=== PATIENT | female | born 1965 | race Caucasian/White ===

== ENCOUNTER 2021-12-19 09:19 | Inpatient (IN) | payer BC, OTHER ==
[~2021-12-19] VITALS: Ht 162.6 cm; Wt 70.8 kg
[2021-12-19 09:31] VITALS: BP_SYST 127
[2021-12-19] MEDS ORDERED: NACL 0.9% 1,000 ML IV ONE (10:15)
[2021-12-19 10:26] LABS: BASOPHILS # (AUTO) 0.1 K/uL (0.0-0.2); BASOPHILS % (AUTO) 0.9 % (0.0-2.0); EOSINOPHILS # (AUTO) 0.1 K/uL (0.0-0.4); EOSINOPHILS % (AUTO) 1.1 % (0.0-4.0); HEMATOCRIT 36.5 % (36-48); HEMOGLOBIN 12.2 g/dL (12.0-16.0); LYMPHOCYTES # (AUTO) 1.7 K/uL (1.0-5.5); LYMPHOCYTES % (AUTO) 24.9 % (20.5-51.5); MEAN CORPUSCULAR HEMOGLOBIN 28 pg (27-31); MEAN CORPUSCULAR HGB CONC 33 % (32-36); MEAN CORPUSCULAR VOLUME 84 fL (79.0-98.0); MONOCYTES # (AUTO) 0.5 K/uL (0.0-1.0); MONOCYTES % (AUTO) 7.7 % (1.7-9.3); NEUTROPHILS # (AUTO) 4.4 K/uL (1.8-7.7); NEUTROPHILS % (AUTO) 65.4 % (40.0-70.0); PLATELET COUNT (AUTO) 191 K/uL (130-430); RED BLOOD CELL COUNT(AUTO) 4.35 MIL/uL (4.2-6.2); RED CELL DISTRIBUTION WIDTH 13.3 % (9.0-15.0); WHITE BLOOD COUNT (AUTO) 6.8 K/uL (4.8-10.8)
[2021-12-19 10:39] LABS: ANION GAP 5 (5-15); CALCIUM 8.7 mg/dL (8.4-11.0); CHLORIDE 103 mmol/L (98-107); GLUCOSE 172 mg/dL (70-99); POTASSIUM 3.3 mmol/L (3.5-5.1); UREA NITROGEN, BLOOD 22 mg/dL (8-21)
[2021-12-19] MEDS ORDERED: ACETAMINOPHEN 500 MG TABLET PO ONE (10:45)
[2021-12-19] MEDS ORDERED: ONDANSETRON HCL 4 MG/2 ML VIAL IVP ONE (10:45)
[2021-12-19 10:48] LABS: ALANINE AMINOTRANSFERASE 19 U/L (12-78); ALBUMIN 3.3 g/dL (3.4-4.8); ASPARTATE AMINOTRANSFERASE 14 U/L (10-37); LIPASE 53 U/L (73-393); TOTAL BILIRUBIN 0.3 mg/dL (0.0-1.0)
--- NOTE | 2021-12-19 11:00 | NUR ---
Pt bib self from home. CC N/V has recurrent episodes of vomiting since Sunday 72 hours. Pt states was out of town on Sunday and went to an Urgent care on Sunday , pt was administered Azithromycin however unable to hold down medicine. 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 Denies SOB, Cap refill <3 sec. Skin intact.
[2021-12-19 11:09] LABS: GFR AFRICAN AMERICAN 133 mL/min (>90)
--- NOTE | 2021-12-19 11:24 | NUR ---
ER at bedside examining patient.
--- NOTE | 2021-12-19 12:00 | NUR ---
Pt c/o headache, nausea relieved at this time. Notified MD Rowley of Headache.
[2021-12-19] MEDS ORDERED: KETOROLAC TROMETHAMINE 30 MG VIAL IVP ONE (12:30)
[2021-12-19] MEDS ORDERED: POTASSIUM CHLORIDE 20 MEQ TAB.PRT.SR PO ONE (12:30)
[2021-12-19] MEDS ORDERED: POTASSIUM CHLORIDE 20 MEQ TAB.PRT.SR ONE (12:55)
[2021-12-19] MEDS ORDERED: LORazepam 2 MG/ML VIAL IVP PRN (14:15)
[2021-12-19] MEDS ORDERED: POTASSIUM CHLORIDE 40 MEQ, LIDOCAINE JECT 2% PF 100 MG 50 MG in NS 250 ML IV PRN (14:15)
[2021-12-19] MEDS ORDERED: INSULIN REGULAR, HUMAN 100 UNITS/ML, 3 ML VIAL (humuLIN R) SUBCUT PRN (14:15)
[2021-12-19] MEDS ORDERED: GLUCOSE (DEXTROSE) ORAL GEL -Adults PO PRN (14:15)
[2021-12-19] MEDS ORDERED: MORPHINE 4 MG INJ. 4 MG/ML VIAL IVP PRN (14:15)
[2021-12-19] MEDS ORDERED: D5W 1,000 ML IV PRN (14:15)
[2021-12-19] MEDS ORDERED: NACL 0.9% 1,000 ML IV SCH (14:15)
[2021-12-19] MEDS ORDERED: MAGNESIUM SULFATE 50 ML IV PRN (14:15)
[2021-12-19] MEDS ORDERED: DEXTROSE 50%-WATER 50 ML DISP.SYRIN IVP PRN (14:15)
[2021-12-19 14:18] LABS: BILIRUBIN,URINE 1+ (NEGATIVE); BLOOD, URINE NEGATIVE (NEGATIVE); COLOR,URINE YELLOW (YELLOW); GLUCOSE,URINE TRACE (NEGATIVE); KETONES,URINE 3+ (NEGATIVE); LEUKOCYTE ESTERASE ,URINE 1+ (NEGATIVE); NITRITE, URINE NEGATIVE (NEGATIVE); PH,URINE 5.5 (5.0-8.0); PROTEIN URINE TRACE (NEGATIVE); UROBILINOGEN,URINE 0.2 (0.2-1.0)
[2021-12-19 14:28] LABS: CLARITY/URINE HAZY (CLEAR)
[2021-12-19 14:29] LABS: BACTERIA,URINE MODERATE /HPF (None Seen); MUCUS,URINE None Seen /LPF (None Seen); RBC,URINE 0-3 /HPF (0-3)
[2021-12-19] MEDS: MORPHINE 2 MG/ML INJ. SYRINGE IVP PRN ×2 (15:05→20:52)
[2021-12-19] MEDS: ONDANSETRON HCL 4 MG/2 ML VIAL IVP PRN ×2 (15:07→21:06)
--- NOTE | 2021-12-19 15:51 | NUR ---
Notified to contact MD Bhupinder Lee Credit Rating Inspector oversight of Pt.
--- NOTE | 2021-12-19 16:15 | NUR ---
ER at bedside examining patient.
[2021-12-19] MEDS ORDERED: cefTRIAXone 1 GM IVPB PREMIX 50 ML IV ONE (16:30)
--- NOTE | 2021-12-19 17:22 | NUR ---
Admit bed requested Patient will be admitted to care of . Admitted to Tele unit. Diagnosis chest pain r/o ACS Inpatient (Yes or No) y Observation (Yes or No) n Orientation concerns or request close to nursing station (Yes or No) n Covid Status n On vent or bipap n Isolation requirements n Needs a sitter n From Home (Yes or if No enter name of facility) n Requires Dialysis (Yes or No) n Med Rec Completed (Yes of No) y
--- NOTE | 2021-12-19 17:55 | NUR ---
Miss Foster is being admitted to room 110-B. She has experienced nausea after a few ice chips. IVF have been started and ordered IV abx has been given.She denies pain and was cooperative in completing the admission process. She has assisted to get comfortable and is resting quietly
[2021-12-19 18:00] VITALS: BP_SYST 162
--- NOTE | 2021-12-19 19:30 | NUR ---
Handoff has been given to Kathleen
--- NOTE | 2021-12-19 19:41 | NUR ---
Patient will be admitted to care of [facility]. Admitted to TELE unit. Will go to room 110. Belongings list completed. Complete and up to date summary report printed. SBAR report to be given at bedside with opportunity for questions.
[2021-12-19 20:00] VITALS: BP_SYST 167
[2021-12-19] MEDS ORDERED: INSU100V7 SUBCUT (20:45)
[2021-12-19] MEDS ORDERED: INSU100V11 SQ (20:45)
[2021-12-19] MEDS: METOPROLOL TARTRATE 25 MG TABLET PO SCH (21:16)
[2021-12-19] MEDS ORDERED: SUMAtriptan SUCCINATE 50 MG TABLET PO ONE (21:30)
[2021-12-20 02:10] LABS: BASOPHILS # (AUTO) 0.1 K/uL (0.0-0.2); BASOPHILS % (AUTO) 0.8 % (0.0-2.0); EOSINOPHILS # (AUTO) 0.1 K/uL (0.0-0.4); EOSINOPHILS % (AUTO) 1.4 % (0.0-4.0); HEMOGLOBIN 11.5 g/dL (12.0-16.0); LYMPHOCYTES # (AUTO) 1.9 K/uL (1.0-5.5); LYMPHOCYTES % (AUTO) 30.6 % (20.5-51.5); MEAN CORPUSCULAR HEMOGLOBIN 29 pg (27-31); MEAN CORPUSCULAR HGB CONC 34 % (32-36); MEAN CORPUSCULAR VOLUME 85 fL (79.0-98.0); MONOCYTES # (AUTO) 0.5 K/uL (0.0-1.0); MONOCYTES % (AUTO) 8.4 % (1.7-9.3); NEUTROPHILS # (AUTO) 3.7 K/uL (1.8-7.7); NEUTROPHILS % (AUTO) 58.8 % (40.0-70.0); PLATELET COUNT (AUTO) 186 K/uL (130-430); RED BLOOD CELL COUNT(AUTO) 4.02 MIL/uL (4.2-6.2); RED CELL DISTRIBUTION WIDTH 13.2 % (9.0-15.0); WHITE BLOOD COUNT (AUTO) 6.3 K/uL (4.8-10.8)
[2021-12-20 02:20] LABS: ANION GAP 8 (5-15); CALCIUM 8.4 mg/dL (8.4-11.0); CHLORIDE 106 mmol/L (98-107); CREATININE 0.47 mg/dL (0.55-1.30); GLUCOSE 143 mg/dL (70-99); POTASSIUM 3.4 mmol/L (3.5-5.1); UREA NITROGEN, BLOOD 15 mg/dL (8-21)
[2021-12-20 02:34] LABS: ALANINE AMINOTRANSFERASE 14 U/L (12-78); ALBUMIN 2.9 g/dL (3.4-4.8); ASPARTATE AMINOTRANSFERASE 14 U/L (10-37); FREE T4 (FREE THYROXINE) 1.3 ng/dl (0.8-1.5); THYROID STIMULATING HORMONE 0.13 uIu/mL (0.36-3.74); TOTAL BILIRUBIN 0.2 mg/dL (0.0-1.0)
[2021-12-20 02:36] LABS: GFR AFRICAN AMERICAN 176 mL/min (>90)
[2021-12-20 02:47] VITALS: BP_SYST 167
[2021-12-20 03:02] LABS: CHOLESTEROL 214 mg/dL (<200); HDL CHOLESTEROL 56 mg/dL (>55); LDL CHOLESTEROL 147 mg/dL (<100); TRIGLYCERIDES 103 mg/dL (30-150)
[2021-12-20 04:00] VITALS: BP_SYST 143
--- NOTE | 2021-12-20 04:59 | NUR ---
CONSULTATION PAGED/CALLED Reason for Consultation: CHEST PAIN Person Who was Notified: TUYET Consulting Physician: ELIESER Field Hand Specialty: CARDIO Ordering Physician: HOWIE
--- NOTE | 2021-12-20 05:00 | NUR ---
CONSULTATION PAGED/CALLED Reason for Consultation: DYSPHAGIA Person Who was Notified: TUYET Consulting Physician: ISAIAS Manager Account Management Specialty: GI Ordering Physician: HOWIE
--- NOTE | 2021-12-20 06:29 | NUR ---
[address] DENIES NO NEW ORDER RESTING QUIETLY IN BED
--- NOTE | 2021-12-20 07:30 | NUR ---
OPENING NOTE Patient in bed resting, no sign of distress and denies pain. Patient states that she is not presently feeling nauseas. Patient updated on her plan of care, verbalized understanding. Patient is currently NPO. All needs met at this time and safety checks made.
[2021-12-20] MEDS: METOPROLOL TARTRATE 25 MG TABLET PO SCH ×2 (09:00→20:22)
[2021-12-20] MEDS: lisinopriL 5 MG TABLET PO SCH (09:00)
[2021-12-20] MEDS: ASPIRIN 81 MG TAB.CHEW PO SCH (09:00)
[2021-12-20] MEDS ORDERED: ATORVASTATIN 20 MG TABLET PO SCH (09:00)
[2021-12-20] MEDS ORDERED: ATORVASTATIN 10 MG TABLET PO ONE (10:00)
[2021-12-20] MEDS: ENOXAPARIN SODIUM 40 MG/0.4 ML SYRINGE SUBCUT SCH (10:08)
[2021-12-20] MEDS: ONDANSETRON HCL 4 MG/2 ML VIAL IVP PRN ×2 (10:25→14:31)
[2021-12-20] MEDS: D5NS 1,000 ML IV SCH ×2 (11:07→21:21)
--- NOTE | 2021-12-20 11:29 | NUR ---
ROUNDS Patient resting in bed with echocardiogram tech at bedside performing test. Patient is aware she will go for an EGD after the echo, consent has been signed and placed in the chart. All needs met at this time and safety checks made.
[2021-12-20] MEDS ORDERED: MEPERIDINE 100 MG INJ. 100 MG/ML VIAL ONE (12:00)
[2021-12-20] MEDS ORDERED: BENZOCAINE 20% 0.5mL UD SPRAY MM ONE (12:01)
[2021-12-20] MEDS ORDERED: MIDAZOLAM HCL 5 MG/5 ML VIAL ONE ×2 (12:01→12:34)
[2021-12-20 12:30] VITALS: BP_SYST 143
[2021-12-20 12:39] VITALS: BP_SYST 130
[2021-12-20] MEDS ORDERED: PANTOPRAZOLE SODIUM 40 MG/VIAL (PROTONIX) IVP ONE (13:00)
--- NOTE | 2021-12-20 15:24 | NUR ---
ROUNDS Patient in bed resting with niece at bedside. Patient is resting with eyes closed falling in and out of sleep. Patient has been complaining of persistent nausea. Patient moved to a clear liquid diet but states she still does not feel up to eating or drinking yet. All needs met at this time and safety checks made.
[2021-12-20 16:00] VITALS: BP_SYST 136
[2021-12-20] MEDS ORDERED: cefTRIAXone 1 GM in D5W 50 ML IV SCH (16:00)
--- NOTE | 2021-12-20 18:46 | NUR ---
CLOSING NOTE PATIENT REMAINS STABLE NO DISTRESS BED AT LOW POSITION CALL LIGHT IN REACH IV INTACT, WILL GIVE PM SHIFT NURSE BEDSIDE SBAR.
[2021-12-20 20:00] VITALS: BP_SYST 146
[2021-12-20] MEDS: PANTOPRAZOLE SODIUM 40 MG/VIAL (PROTONIX) IVP SCH (20:22)
[2021-12-20] MEDS ORDERED: INSULIN GLARGINE 100 UNITS/ML, 10 ML VIAL SUBCUT SCH (21:00)
--- NOTE | 2021-12-20 21:24 | NUR ---
Patient in bed. No acute distress noted. C/O nausea. Protonix given per physician's order. Will continue to monitor.
--- NOTE | 2021-12-21 00:41 | NUR ---
Insulin held because patient is experiencing N/V no PO intake.
[2021-12-21 01:21] VITALS: BP_SYST 120; BP_SYST 129
[2021-12-21] MEDS: ONDANSETRON HCL 4 MG/2 ML VIAL IVP PRN ×2 (01:35→09:05)
[2021-12-21 07:25] LABS: BASOPHILS # (AUTO) 0.1 K/uL (0.0-0.2); EOSINOPHILS # (AUTO) 0.1 K/uL (0.0-0.4); EOSINOPHILS % (AUTO) 1.7 % (0.0-4.0); HEMATOCRIT 33.6 % (36-48); HEMOGLOBIN 11.3 g/dL (12.0-16.0); LYMPHOCYTES # (AUTO) 1.8 K/uL (1.0-5.5); LYMPHOCYTES % (AUTO) 32.7 % (20.5-51.5); MEAN CORPUSCULAR HEMOGLOBIN 28 pg (27-31); MEAN CORPUSCULAR HGB CONC 34 % (32-36); MEAN CORPUSCULAR VOLUME 83 fL (79.0-98.0); MONOCYTES # (AUTO) 0.4 K/uL (0.0-1.0); MONOCYTES % (AUTO) 7.4 % (1.7-9.3); NEUTROPHILS # (AUTO) 3.2 K/uL (1.8-7.7); NEUTROPHILS % (AUTO) 57.2 % (40.0-70.0); PLATELET COUNT (AUTO) 179 K/uL (130-430); RED BLOOD CELL COUNT(AUTO) 4.05 MIL/uL (4.2-6.2); RED CELL DISTRIBUTION WIDTH 12.9 % (9.0-15.0); WHITE BLOOD COUNT (AUTO) 5.6 K/uL (4.8-10.8)
--- NOTE | 2021-12-21 07:30 | NUR ---
OPENING NOTE Patient in bed resting, no sign of distress and patient denies pain. Patient complaining of nausea. Patient has not eaten or had anything to drink, states that just the thought of food makes her stomach upset. IV is patent and running prescribed fluids. Patient is ambulatory with steady gait. Patient has been updated on her plan of care, verbalized understanding. All needs met at this time and safety checks made.
[2021-12-21 08:01] LABS: ALBUMIN 2.7 g/dL (3.4-4.8); CALCIUM 8.1 mg/dL (8.4-11.0); CREATININE 0.64 mg/dL (0.55-1.30); PHOSPHORUS 2.5 mg/dL (2.7-4.5); TOTAL BILIRUBIN 0.2 mg/dL (0.0-1.0)
[2021-12-21 08:03] VITALS: BP_SYST 131
[2021-12-21] MEDS ORDERED: ATORVASTATIN 10 MG TABLET PO SCH (09:00)
[2021-12-21 09:02] LABS: POTASSIUM 2.9 mmol/L (3.5-5.1)
--- NOTE | 2021-12-21 09:02 | NUR ---
CRITICAL LAB: Laboratory called with critical lab value K-2.9. Medical record number and patient name verified. Read back of values done. DR GONZALEZ notified of value. NO orders given at this time. PRN ORDERS GIVEN AT THIS TIME
[2021-12-21] MEDS: PANTOPRAZOLE SODIUM 40 MG/VIAL (PROTONIX) IVP SCH (09:05)
[2021-12-21] MEDS: ASPIRIN 81 MG TAB.CHEW PO SCH (09:08)
[2021-12-21] MEDS: METOPROLOL TARTRATE 25 MG TABLET PO SCH (09:10)
[2021-12-21] MEDS: lisinopriL 5 MG TABLET PO SCH (09:11)
[2021-12-21] MEDS: ENOXAPARIN SODIUM 40 MG/0.4 ML SYRINGE SUBCUT SCH (09:12)
[2021-12-21] MEDS ORDERED: METOCLOPRAMIDE HCL 10 MG/2 ML VIAL IVP PRN (09:30)
[2021-12-21] MEDS: D5NS 1,000 ML IV SCH (09:45)
[2021-12-21] MEDS ORDERED: METO-290 PO (09:57)
[2021-12-21] MEDS ORDERED: PRO40 PO (09:57)
[2021-12-21] MEDS ORDERED: POTASSIUM CHLORIDE 20 MEQ TAB.PRT.SR PO ONE (10:00)
[2021-12-21] MEDS ORDERED: DIATR MEGLU/DIATRIZ SOD 30 ML SOLUTION PO ONE (10:23)
[2021-12-21 12:08] VITALS: BP_SYST 118
--- NOTE | 2021-12-21 12:42 | NUR ---
ROUNDS Patient currently in CT. Patient has been updated on her plan of care and is aware she will be discharged later today. Patient states her nausea has improved after receiving reglan. Patient was able to tolerate drinking most of the CT contrast.
[2021-12-21 13:49] VITALS: BP_SYST 118
== END 2021-12-21 17:06 | disposition home or self-care (01) | DRG 393 ==
LOC: SED 09:19 → STU 14:03
PROC: 0DB58ZX Excision of Esophagus, Via Natural or Artificial Opening Endoscopic, Diagnostic (ICD-10-PCS; 2021-12-20)
PROC: 0D748ZZ Dilation of Esophagogastric Junction, Via Natural or Artificial Opening Endoscopic (ICD-10-PCS; 2021-12-20)
PROC: 0DB98ZX Excision of Duodenum, Via Natural or Artificial Opening Endoscopic, Diagnostic (ICD-10-PCS; principal; 2021-12-20 11:30)
PROC: 0DB78ZX Excision of Stomach, Pylorus, Via Natural or Artificial Opening Endoscopic, Diagnostic (ICD-10-PCS; 2021-12-20 11:30)
DX: K31.7 Polyp of stomach and duodenum (principal); I21.A1 Myocardial infarction type 2; E44.1 Mild protein-calorie malnutrition; N39.0 Urinary tract infection, site not specified; K20.90 Esophagitis, unspecified without bleeding; E86.0 Dehydration; G43.909 Migraine, unspecified, not intractable, without status migrainosus; R13.10 Dysphagia, unspecified; E87.6 Hypokalemia; E78.5 Hyperlipidemia, unspecified; E11.9 Type 2 diabetes mellitus without complications; Z79.4 Long term (current) use of insulin; Z79.899 Other long term (current) drug therapy; Z86.16 Personal history of COVID-19; Z90.710 Acquired absence of both cervix and uterus; Z68.26 Body mass index [BMI] 26.0-26.9, adult
CPT/HCPCS: 36415; 70450-TC; 71045; 76376; 80053; 80061; 81000; 82962; 83036; 83690; 83735; 83880; 84100; 84439; 84443; 84484; 85025; 87081; 87086; 88305; 88312; 88313; 93005; 93306; 96361; 96365; 96375; 99285; C9113; G0378; J0696; J1650; J1815; J1885; J2175; J2250; J2270; J2405; J2765; J3475; J3480; J7030; J7042; J7050; J7060; Q9964; Q9967